=== PATIENT | female | born 1975 | race Caucasian/White ===

== ENCOUNTER → 2018-06-24 | Emergency (ER) | payer OTHER ==
[~2018-06-24] VITALS: Ht 154.9 cm; Wt 94.0 kg
[~2018-06-24] MED LIST: DIAZ5TAB PO; ketorolac trometh inj. 60 MG/2 ML VIAL IM ONE
[2018-06-24 17:16] VITALS: BP 146/92
== END | disposition home or self-care (01) ==
LOC: ER 15:21
DX: S16.1XXA Strain of muscle, fascia and tendon at neck level, initial encounter (principal); S13.4XXA Sprain of ligaments of cervical spine, initial encounter; M25.552 Pain in left hip; I10 Essential (primary) hypertension; Z88.6 Allergy status to analgesic agent; Z88.1 Allergy status to other antibiotic agents; Z88.2 Allergy status to sulfonamides; Z88.8 Allergy status to other drugs, medicaments and biological substances; V89.2XXA Person injured in unspecified motor-vehicle accident, traffic, initial encounter; Y93.89 Activity, other specified; Y92.488 Other paved roadways as the place of occurrence of the external cause; Y99.8 Other external cause status
CPT/HCPCS: 96372; 99283; J1885